=== PATIENT | female | born 1975 | race Caucasian/White ===

== ENCOUNTER 2021-09-05 08:06 | Emergency (ER) | payer SELFPAY ==
[2021-09-05] MEDS: Sodium Chloride 0.9% 10 ML Syringe FLUSH PRN (08:15)
[2021-09-05] MEDS: Ondansetron 4 MG/2 ML SDV IVPUSH ONE (08:21)
[2021-09-05] MEDS: Sodium Chloride 0.9% 1,000 ML IV ONE (08:30)
[2021-09-05] MEDS: Ondansetron 4 MG/2 ML SDV ONE (08:47)
[2021-09-05 09:05] LABS: HEMOGLOBIN A1C 9.2 % (4.3-5.7)
== END 2021-09-05 10:00 | disposition home or self-care (01) ==
LOC: KA.ED 08:06
DX: E11.65 Type 2 diabetes mellitus with hyperglycemia (principal); R11.2 Nausea with vomiting, unspecified; Z91.018 Allergy to other foods
CPT/HCPCS: 36415; 80053; 81003; 81025; 82947; 83036; 83690; 85025; 96361; 96374; 99284; 99285-25; J2405; J3490; J7030